=== PATIENT | male | born 1955 | race Caucasian/White ===

== ENCOUNTER 2016-11-19 23:39 | Emergency (ER) | payer OTHER ==
[~2016-11-19 23:39] MED LIST: ALDACTONE100 MG PO; ENULOSE10 GM/15 M PO; LACTULOSE10 GM/15 M PO; LACTULOSE20 GM/30 M PO; LASIX DPS40 MG PO; TYLENOL DPS325 MG PO; VITAMIN D31000 UNIT PO
--- NOTE | 2016-11-21 07:39 | ER ---
ADMIT: 11/19/2016 RM/LOC: ER [facility] MR#: [id number] 2620 [facility] [address] [place], [place] [address] [address] [address] [place], [place] [id number] Emergency Room Report SEX: M AGE: 61 : 1955 DATE: 11/19/2016 HISTORY OF PRESENT ILLNESS: The patient is a 61-year-old male with a past medical history of cirrhosis, hepatitis C, chronic kidney disease, who has PleurX on the right side for drainage of the pleural effusion, came to the ER because while he was in bed, he noticed a small bump, mass, just 4 cm above the insertion of the PleurX to the right flank. The patient states he does not recall when the mass started, but he never noticed it. The patient denies any trauma, denies any pain or discomfort. The patient yesterday morning used PleurX and took off some pleural effusion fluid successfully. PHYSICAL EXAMINATION: VITAL SIGNS: In the ER, the patient had stable vitals. HEAD AND NECK: Noncontributory. CHEST: Clear bilaterally. ABDOMEN: Soft and there is a 1 x 2 cm small swelling, 4 cm above the insertion of the PleurX to the right flank of abdomen. IMAGING: Chest x-ray did not show any pneumothorax or abnormalities, and there is a small pleural effusion on the right side. ASSESSMENT AND PLAN: At this stage, the patient is stable and can be discharged to home. Return precautions. The patient is going to call Dr. Antunez tomorrow for followups. The patient was advised to come back if there is any shortness of breath, increase in the mass, or any concern like if the PleurX does not work. The patient acknowledged. He understood it and agreed with the plan and was discharged to home. Kj Levy MD/ shaun SANCHEZ: 11/20/2016 08:53:10 JOB #: [id number] CC: Kj Levy MD, Attending Physician Wilfrido Antunez MD, Family Physician
[2016-12-17] MEDS ORDERED: DUONEB DPS3 ML IH (11:16)
[2017-04-14] MEDS ORDERED: CLARITIN DPS10 MG PO (10:50)
[2017-04-14] MEDS ORDERED: SOD BICARB TAB650 MG PO (10:50)
== END 2016-11-20 05:30 | disposition home or self-care (01) ==
LOC: ER 23:39
DX: R19.00 Intra-abdominal and pelvic swelling, mass and lump, unspecified site (principal); N18.9 Chronic kidney disease, unspecified; Z79.899 Other long term (current) drug therapy

== ENCOUNTER 2016-12-15 17:31 | Observation (INO) | payer OTHER ==
[~2016-12-15] VITALS: Ht 185.4 cm; Wt 144.0 kg
[2016-12-17] MEDS ORDERED: DUONEB DPS3 ML IH (11:16)
--- NOTE | 2016-12-21 08:30 | HP ---
ADMIT: 12/15/2016 RM/LOC: 510 [facility] MR#: [id number] 2620 [facility] [address] [place], [place] [address] [facility] R[facility] [address] [place] [address] History and Physical SEX: M AGE: 61 : 1955 DATE OF SERVICE: CHIEF COMPLAINT: Increased shortness of breath and weakness. HISTORY OF PRESENT ILLNESS: Morales is a very pleasant 61-year-old male with a complicated past medical history, including decompensated liver failure from hepatitis C, with recurrent right pleural effusions, requiring regular drainage from an indwelling PleurX catheter, who presented to the emergency department today with the above complaints. He has been followed since his last discharge by home health care on a regular basis, who have been helping him drain his recurrent fluid accumulations. Morales has also been following with the liver team and GI team down in [facility]. Over the last few weeks, Morales has been having increasing weakness, larger fluid accumulation, and increasing shortness of breath. The patient is actually supposed to go down on the of this month I believe for a formal evaluation for liver transplantation. Thus far, I do not believe he has been started on any medication for his hepatitis C. At any rate, home healthcare nursing discussed with our team, who recommended to discuss with [facility] and they recommended transfer down to the medical center for further evaluation and stabilization. Morales has been very sensitive to diuresis with his Lasix and spironolactone. Small changes have caused him to go into acute renal failure. Recently, he was having worsening renal failure and his Lasix was dropped from 40-20 mg along with his spironolactone. Creatinine baseline around 1.3 is jumped up to around 1.7 now. The patient states overall he is just feeling worse and worse. Upon evaluation in the emergency department, he was found to have stable labs, stable chest x-ray and not requiring any oxygen. Attempt was made to transfer to the medical center, however, being that their hospital is full, they recommended admission to our facility and secondary transfer down tomorrow or as soon as they have a bed available. Morales has no chest pain. No other significant complaints at this time, just feels fairly rundown, and does not feel that he would be able to get down to the appointment on the by himself. PAST MEDICAL HISTORY: Include: 1. Liver cirrhosis, secondary to hepatitis C, mild to moderately decompensated. Child-Arrieta score class B. 2. Hepatitis C, genotype 2b. 3. Chronic kidney disease. 4. Recurrent right pleural effusion, status post PleurX catheter placement with regular pleural effusion drainage. 5. Malnutrition. 6. Morbid obesity. 7. Generalized debility. 8. Hepatitis C, genotype 2b. 9. Pancytopenia, evaluated by our local vp training, thought to be secondary to hepatitis C, no history of bone marrow. 10.Mild depression. 11.Chronic respiratory failure, secondary to pleural effusion. 12.Disability secondary to the above. ADMIT: 12/15/2016 RM/LOC: 510 [facility] MR#: [id number] [address] [address] L[address] RICE [address] [place] [address] History and Physical SEX: M AGE: 61 : 1955 Most recent hospitalization, patient had a prolonged hospital stay from 03/29/2016 to 04/15/2016 with acute respiratory failure secondary to recurrent accumulation of right pleural effusion, healthcare-acquired pneumonia, incarcerated umbilical hernia with repair during that hospitalization, placement of right-sided PleurX catheter placement, and had multiple consultations with Nephrology, Pulmonology, Infectious Disease, Surgery, and Supportive Care. He also had a prolonged stay in the intense rehab unit. Has been fairly stable since then, following with home health care and with [facility] Hepatology. HOME MEDICATIONS: Include: 1. Furosemide 20 mg daily. 2. Spironolactone 50 mg daily. 3. Lactulose 15-30 mL 2-3 times a day. 4. Tylenol p.r.n., do not exceed 2000 mg. 5. Vitamin D3 at 1000 units every day. 6. Low-salt diet. ALLERGIES: NO KNOWN DRUG ALLERGIES. SOCIAL HISTORY: Patient previously was living in [place], originally from [place] and has moved back since he became ill. 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 He would like to get his hepatitis C treated and his liver treated so he can get back to work. He is , but . His 's name is Mary. His brother, Ryan, is his [id number] if he is unable to make medical decisions. His phone #. No alcohol, drug, or tobacco use. The patient has a sedentary lifestyle. FAMILY HISTORY: Mother and father . Mother from old age at about 93. Father had a myocardial infarction at 73, contracted infection, which also might have caused his demise thereafter. He has a brother with diabetes. He also had a stroke and a heavy drinker, smoker. REVIEW OF SYSTEMS: A 10-point review of systems obtained per HPI, otherwise negative. PHYSICAL EXAMINATION: VITAL SIGNS: Blood pressure 162/78, pulse 60, respirations 16, temperature 97.8, and 96% room air. GENERAL: Alert and oriented x3. Appears ill, but nontoxic, in good spirits as usual. HEART: Regular rate and rhythm. No murmurs, rubs, or gallops. LUNGS: Decreased right side greater than left with crackles in the bases. ABDOMEN: Soft. Nontender. Nondistended. Obese. PleurX catheter in place on the right chest wall, but does not appear to be infected. EXTREMITIES: With trace to 1+ edema. NEUROLOGIC: Cranial nerves II through XII grossly intact. No focal deficits. No significant asterixis. No findings of encephalopathy. ADMIT: 12/15/2016 RM/LOC: 510 [facility] MR#: [id number] 2620 [facility] [address] [place], [place] [address] L[facility] RICE [address] [place] [address] History and Physical SEX: M AGE: 61 : 1955 LABORATORY DATA: White count 4.0, hemoglobin 9.6 (which is stable), platelets 101 (stable). Sodium 149. Potassium 4.4. Creatinine 1.7. CO2 of 18. AST 109. Bilirubin 1. INR 1.14. Chest x-ray with decreased pleural effusion from previous x-ray. ASSESSMENT: A 61-year-old male with: 1. Decompensated liver failure with Child Arrieta score of 8, class B and a MELD score of 13, giving him a 6% mortality in next 3 months. 2. Worsening generalized fatigue and breathlessness secondary to decompensated liver failure. 3. Acute on chronic respiratory failure, mild without apparent hypercapnia or hypoxia. 4. Recurrent right pleural effusion, status post PleurX catheter drainage and regular draining with more fluid accumulation over the last week. 5. Chronic kidney disease, stable. 6. Malnutrition. 7. Pancytopenia, thought to be secondary to his hepatitis C. 8. Hepatitis C, genotype 2b. 9. Morbid obesity. 10.Mild depression. PLAN: At this point, the patient just seems subjectively to continue to worsen. Objectively, labs seem to be stable from previous labs at our clinic. I have been following him on a regular basis with regular labs. Home Healthcare nursing, however, and the patient do feel that he is declining. He certainly is having higher output from his PleurX catheter, likely secondary to the recent decrease in his Lasix. His kidneys have been very sensitive to further diuresis, and he quickly decompensates because of this. We have to watch very closely, and at this point, he does not feel that he is going to be able to make it down to his appointment on the by himself. We have ADMIT: 12/15/2016 RM/LOC: 510 [facility] MR#: [id number] 26[address] [facility] [address] [place], [place] [address] L[facility] RICE [address] [place] [address] History and Physical SEX: M AGE: 61 : 1955 discussed with his gastrointestinal team and home health care nursing facility and they do agree that he will do [facility] at [facility] point. We will admit here, and [facility] has agreed to transfer the patient as soon as they have a bed available. While here, we will check a serum AFP, abdominal ultrasound for any further ascites, and continue home medications. I will also have Nephrology see him to see if we can push the diuretics a little bit more in the meantime, just in case the patient is here for another 24-48 hours. Greater than 35 minutes was spent on overall patient care. Greater than 50% of that was spent [id number] interaction with the patient. He is agreeable to our plan. Wilfrido Antunez MD/ shaun JOB #: [id number] CC: Wilfrido Antunez, Attending Physician Wilfrido Antunez, Family Physician
--- NOTE | 2017-01-01 08:19 | ER ---
ADMIT: 12/15/2016 RM/LOC: 510 [facility] MR#: [id number] 2620 [facility] [address] [place], [place] [address] L[address] RICE [address] [place] [address] Emergency Room Report SEX: M AGE: 61 : 1955 DATE: 12/15/2016 ADDENDUM: A 61-year-old white male with multiple comorbidities, these include cardiac disease, cirrhosis, kidney failure, hypertension, hepatorenal syndrome, recurrent pleural effusions with Pleur-evac coming in today just not feeling well. [facility]; however, [facility]. Vital signs are otherwise stable. CBC and chemistry are intact. Chest x-ray and EKG nothing acute. I spoke with Dr. Antunez. He will admit to observation while they wait for a room to open up. CONDITION ON DISCHARGE: Fair. Jw Porter MD/ shaun JOB #: [id number] CC: Wilfrido Antunez MD, Attending Physician Wilfrido Antunez MD, Family Physician
[2017-04-14] MEDS ORDERED: CLARITIN DPS10 MG PO (10:50)
[2017-04-14] MEDS ORDERED: SOD BICARB TAB650 MG PO (10:50)
== END 2016-12-16 14:26 | disposition short-term general hospital (02) ==
LOC: ER 17:31 → 5MS 19:30
PROVIDERS: ADMIT Family Medicine
DX: K72.90 Hepatic failure, unspecified without coma (principal); J96.20 Acute and chronic respiratory failure, unspecified whether with hypoxia or hypercapnia; J90 Pleural effusion, not elsewhere classified; E46 Unspecified protein-calorie malnutrition; D61.818 Other pancytopenia; E66.01 Morbid (severe) obesity due to excess calories; F32.9 Major depressive disorder, single episode, unspecified; B19.20 Unspecified viral hepatitis C without hepatic coma; N18.9 Chronic kidney disease, unspecified; Z79.899 Other long term (current) drug therapy

== ENCOUNTER → 2016-12-31 | Outpatient (CLI) | payer OTHER ==
[~2016-12-31] MED LIST changes: +CLARITIN DPS10 MG PO; +DUONEB DPS3 ML IH; +SOD BICARB TAB650 MG PO
== END | disposition home or self-care (01) ==
LOC: RAD.S 11:57 → EDSTATUS 13:00
DX: Z46.82 Encounter for fitting and adjustment of non-vascular catheter (principal)

== ENCOUNTER 2017-04-10 14:07 | Inpatient (IN) | payer OTHER ==
[~2017-04-10] VITALS: Ht 185.4 cm; Wt 142.2 kg
[~2017-04-10 14:07] MED LIST changes: -CLARITIN DPS10 MG PO; -SOD BICARB TAB650 MG PO
--- NOTE | 2017-04-11 09:23 | HP ---
ADMIT: 04/10/2017 RM/LOC: 518 [facility] MR#: [id number] 2620 [facility] [address] [place], [place] [address] L[place] RICE [address] [place] [address] History and Physical SEX: M AGE: 61 : 1955 DATE OF SERVICE: CHIEF COMPLAINT: Small amount of bright red rectal bleeding today with increasing confusion and some shortness of breath. HISTORY OF PRESENT ILLNESS: Morales is a very nice, but unfortunate 61-year- old, male with decompensated liver failure for hepatitis C, with recurrent right pleural effusions, requiring regular drainage from indwelling PleurX catheter (placed on April 02, 2016). He had been followed by home health on a regular basis and they help him drain his recurrent pleural effusions. He has also been followed by the Liver team and Gastroenterology team at [facility]. He last saw them early this summer and "they don't tell me anything." He stated he had been getting along reasonably well until the last couple of days when he seemed to have more confusion and "it was felt like I was going wild." He is complaining of his "feet jumping." He also today noted a fairly small amount of rectal bleeding, although he thought "it was dripping some." This brought him to the emergency room, where evaluation showed no obvious rectal bleeding or hemorrhoids. His lab studies showed an ammonia up to 163 umol/L (baseline in the 60s) and his creatinine had bumped up to 1.9 mg/dL (baseline about 1.00 to 1.2). His total protein and albumin were 5.1 g/dL and 2.1 g/dL respectively. AST was only slightly elevated at 47 U/L (normal is 10 to 40) and his alkaline phosphatase and SGPT were within normal limits. His INR was 1.18 and his white count was 3600 with a hemoglobin of 8 (baseline about 9.6 to 10) and platelets of 88,000 (baseline about 100,000). He was given an extra dose of lactulose in the ER, although he reports "I am quite sure I did not miss any doses." He had also noted decreased output from his drain. He is therefore admitted for further evaluation and treatment. PAST MEDICAL HISTORY: Well documented on several of Dr. Wilfrido Antunez's previous history and physicals and dismissal summaries. His past medical history includes: 1. Liver cirrhosis secondary to hepatitis C, mildly decompensated now (Child- Arrieta score, class B). 2. Known hepatitis C, genotype B. 3. Chronic kidney disease. 4. Recurrent right pleural effusion, status post PleurX catheter placement with regular pleural effusion drainage. 5. Malnutrition. 6. Morbid obesity. 7. 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 8. Mild depression. 9. Chronic respiratory failure secondary to pleural effusions. 10.Disability secondary to all of the above. He had a prolonged hospital stay from 03/29/2016 to 04/15/2016 with acute respiratory failure with his right pleural effusion, healthcare pneumonia, incarcerated umbilical hernia with repair, and placement of his right-sided PleurX catheter with multiple consultations including Nephrology, Pulmonology, ADMIT: 04/10/2017 RM/LOC: 518 [facility] MR#: [id number] [address] [address] [place] R[facility] [address] [facility] [address] [place] [address] History and Physical SEX: M AGE: 61 : 1955 Infectious Disease, Surgery, and Supportive Care. He was then hospitalized again for a day or two on 12/15/2016, before being transferred to [facility] for re- evaluation by the Liver team and he was having more edema. From Dr. Mcbride's notes, apparently small changes in his Lasix and spironolactone doses have caused him to go into acute renal failure. After his hospitalization in March 2016, he had a prolonged stay in the inpatient rehab unit. MEDICATIONS: His current medications include: 1. Sodium bicarb 650 mg t.i.d. 2. Claritin 10 mg daily. 3. Spironolactone 100 mg, 2 daily. 4. Lasix 40 mg, 1 and 1/2 tablets daily. 5. Lactulose 10 g/15 mL, 30 mL q.i.d. p.r.n. (I do not know about that p.r.n. issue). ALLERGIES: NONE ARE REPORTED. 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 He is apparently (again according Dr. Mcbride's notes) , but . He has had no recent alcohol, drug, or tobacco use, and he has a very sedentary lifestyle. FAMILY HISTORY: Again from Dr. Mcbride's previous notes, revealed his mother from old age about 93. His father had a myocardial infarction at age 73 and then contracted some kind of infection which may have caused his . He has a brother with diabetes, who was also had a stroke and is a heavy drinker and smoker. REVIEW OF SYSTEMS: Otherwise, x10 is essentially negative. As noted above, he states he has been feeling well. PHYSICAL EXAMINATION: GENERAL: He is alert, has a little trouble coming up with the correct words, but is oriented x3. He is in no distress. VITAL SIGNS: His initial blood pressures have been in the 140 to 150 systolic range. He is afebrile. Pulse in the 80s. SKIN: Warm and dry. HEENT: Essentially negative. I do not detect any scleral icterus. NECK: Reasonably supple. I detect no bruits. LUNGS: Show diminished breath sounds on the right side. I do not detect any rales or wheezing. CARDIAC: Shows a regular rhythm. No obvious murmur, S3, S4, click, or rub. ABDOMEN: Soft, slightly distended, nontender. CHEST: He has a PleurX catheter in place in the right chest wall that the entry site appears clean. GENITAL AND RECTAL: Exam was not done (rectal exam done by the ER staff, showed no apparent blood). EXTREMITIES: Show a trace to 1+ pedal and pretibial edema. GENERAL NEUROLOGIC: He is normal within his ability to test. He has no ADMIT: 04/10/2017 RM/LOC: 518 [facility] MR#: [id number] 26[address] [facility] [address] [place], [place] [address] L[address] RICE [address] [facility] [address] [place] [address] History and Physical SEX: M AGE: 61 : 1955 asterixis and no focal deficits. Again, he just has a little trouble coming up with a right word and intermittently seems a little confused. IMPRESSION: 1. Bright red rectal bleeding, ?etiology. 2. Decompensated liver failure with a Child-Arrieta score of 8. Elevated ammonia levels on admission now. 3. Chronic respiratory failure, mild, without a current hypercapnia secondary to recurrent right pleural effusion. 4. Recurrent right pleural effusion with PleurX catheter placement and regular drainage (per home health). 5. Chronic kidney disease, slight bump in his creatinine today. 6. Malnutrition. 7. Pancytopenia, thought to be secondary to his hepatitis C. 8. Hepatitis C, genotype 2B. 9. Morbid obesity. 10.Mild depression. PLAN: He has been admitted to General Med-Surg. We will follow his hemoglobin closely and recheck basic labs again in the morning including his ammonia. We will give him lactulose 45 mL q.2 hours until he has a few soft stools. We will continue his other usual medications. Further treatment will depend on his response to our initial therapies. We will get some blood cultures and sepsis markers on him, although, apparently, he does not appear to be infected. Kristofer Mcmanus MD/ shaun SANCHEZ: 04/10/2017 16:46:03 JOB #: [id number] CC: Wilfrido Antunez, Attending Physician Wilfrido Antunez, Family Physician
--- NOTE | 2017-04-13 00:26 | ER ---
ADMIT: 04/10/2017 RM/LOC: 518 [facility] MR#: [id number] 2620 [facility] [address] [place], [place] [address] L[facility] RICE [address] [place] [address] Emergency Room Report SEX: M AGE: 61 : 1955 DATE: 04/10/2017 HISTORY OF PRESENT ILLNESS: Please refer to my T-sheet for complete H and P. Briefly, the patient is a 61-year-old who comes in with short of breath, confused, shaky, rectal blood. He has a known history of cirrhosis with hepatitis C. he is apparently on waiting list for a liver transplant he tells me. He said he is taking his lactulose, he is taking spironolactone, but he feels weak. He has a PleurX drain in his right chest for effusion that has been chronic; it has drained a little bit less. Home health wanted him evaluated. PHYSICAL EXAMINATION: GENERAL: Here, no acute distress. VITAL SIGNS: Blood pressure 126/70, pulse 84, respirations 12, temperature 97.4, sat 98%. HEENT: Grossly normal. LUNGS: Clear except there is slightly diminished in the right lower base. HEART: Regular. ABDOMEN: Obese, soft, really nontender. SKIN: He has 2+ edema in lower extremities. NEURO: He is alert, oriented at this time. Nonfocal. EMERGENCY DEPARTMENT COURSE: CBC was normal except for white count of 3.6, hemoglobin 8, platelets 88; his last hemoglobin was 8.6 in December of this year. Chemistries normal except for CO2 of 19, BUN 36, glucose 135, creatinine 1.9. His ammonia was 163. His INR was 1.18, his PT was 12.3, PTT 27.2. UA was normal except for 48 red cells. I did go and do a rectal exam, I saw a little irritation with some abrasions that could be bleeding a little bit, but no active bleeding at this time. I gave him 500 mL normal saline bolus, lactulose 30 mL p.o. I talked to Dr. Mcmanus; we are going to admit to the hospital. ADMIT: 04/10/2017 RM/LOC: 518 [facility] MR#: [id number] [address] [id number] [place], [place] [address] [facility] [address] [facility] [address] [place] [address] Emergency Room Report SEX: M AGE: 61 : 1955 ASSESSMENT: 1. Confusion with an elevated ammonia level. 2. Anemia. 3. Rectal bleeding, although mild with his last hemoglobin 8.6 two-three months ago. 4. Weakness. 5. Renal insufficiency. 6. Cirrhotic patient with liver cirrhosis. PLAN: Admit to the hospital at this time. Joshua Krause MD/ shaun JOB #: [id number] CC: Wilfrido Antunez MD, Attending Physician Wilfrido Antunez MD, Family Physician
--- NOTE | 2017-04-13 11:18 | CO ---
ADMIT: 04/10/2017 RM/LOC: 518 [facility] MR#: [id number] [address] [facility] [address] [place], [place] [address] LORRAINE RICE [address] [place] [address] Consultation SEX: M AGE: 61 : 1955 DATE OF CONSULTATION: 04/12/2017 ATTENDING PHYSICIAN: Wilfrido Antunez CONSULTING PHYSICIAN: Nettie Sullivan APRN REASON FOR CONSULTATION: For review of goals and expectations of healthcare as well as symptom management. TIME IN: 11:00. TIME OUT: 11:50. HISTORY OF PRESENT ILLNESS: This patient is a very nice 61-year-old male, who was admitted with complaints of increasing shortness of breath, acute confusion, and bright red rectal bleeding. He has a significant past medical history of decompensated liver failure due to hepatitis C, recurrent right pleural effusions, requiring regular drainage from an indwelling PleurX catheter that was placed on April 02, 2016. He is followed by home health on a regular basis, they help him drain his recurrent pleural effusions daily or every other day. He is followed by the Liver and Gastroenterology team, [facility]. He last saw them early this summer. He has recently been getting along reasonably well until the last couple of days and he seemed to have more confusion. He states that it felt like he was going wild and that his legs felt like they were jumping. He also did note a small amount of rectal bleeding. He then called his home health nurse and was told to go into the emergency room. In the ER, there was no obvious rectal bleeding or hemorrhoids noted on exam. He was admitted for further evaluation and workup of his acute confusion. When he was in the ER, his labs showed that his ammonia had increased to 163, his creatinine bumped up to 1.9. Typically, his baseline is about 1.0 to 1.2. He was given an extra dose of lactulose in the ER and admitted. The lactulose did cause some nausea and vomiting. Surgery was consulted for his rectal bleeding. They have seen the patient, and have ordered for the patient to follow up outpatient for a colonoscopy. He also has received 1 unit of packed red blood cells while in the hospital. Physical Therapy and Occupational Therapy have evaluated and treated the patient and he is to ambulate t.i.d. Symptomatically, currently, the patient is just complaining of fatigue. He states that he has been unable to get much rest while in the hospital. He does explain that he does get short of breath at times. He denies any nausea, vomiting, chest pain, or fevers at this time. The patient states he does have a living will, but it is not currently on file. I did request a copy from the patient. He is listed as a full code in the chart. His brother Mic Valverde is his next of kin and person to contact, his phone #[phone]. SOCIAL HISTORY: Currently, the patient is living at home. He does get ADMIT: 04/10/2017 RM/LOC: 518 [facility] MR#: [id number] [address] [address] DWAYNE LORRAINETANA AGUILERA [address] [place] [id number] Consultation SEX: M AGE: 61 : 1955 assistance from [facility] a couple of times a week. 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 He is , but . He does deny recent alcohol, drug, or tobacco use. FAMILY HISTORY: Significant for heart disease, diabetes, and stroke. ALLERGIES: NO KNOWN MEDICAL ALLERGIES. MEDICATIONS: Please refer to the chart for accurate dosages and routes. Current medications include: 1. Lactulose. 2. Lasix. 3. Claritin. 4. Zofran. 5. Spironolactone. 6. Sodium bicarb. 7. Requip. 8. Maalox. 9. Tylenol. 10.Colace. 11.Normal saline. FUNCTIONAL STATUS: Previously, the patient was living at home on his own. He did have reduced mobility, requiring a cane. He had a normal ADLs with some effort and there was a significant amount of disease. He was requiring occasional assistance. His intake was normal to decreased, and his LOC was full to confusion at times. His previous palliative performance scale was 80% to 70%. Currently, the patient is mostly sitting and lying in bed. He is requiring considerable assistance. His intake is normal to reduced. His LOC is full to confusion at times. His current palliative performance scale is about 60%. Falls: the patient does admit to having a fall two months ago. He denies any injury from that fall. Also of note, last year at this time, his weight was around 340 to 350; on admission, his weight was 303. REVIEW OF SYSTEMS: All review of systems were reviewed and negative except what was noted in the HPI. PHYSICAL EXAMINATION: GENERAL: The patient is alert and he is mildly confused. He is oriented to person and place. He does state that the year is 2019. During discussion, he states that the month is March and that we just recently celebrated . The patient is sitting up in bed and he is conversing without distress. VITAL SIGNS: Temperature 98.7, pulse is 70, respirations 14, blood pressure 135/63, O2 saturations 94% on room air. HEENT: Pupils are equal and reactive bilaterally. Oral mucosa is pink and moist with fair dentition. Head is normocephalic and atraumatic. ADMIT: 04/10/2017 RM/LOC: 518 [facility] MR#: [id number] [address] [facility] [address] [place] [phone] DWAYNE LORRAINETANA AGUILERA [address] [facility] [address] [place] [address] Consultation SEX: M AGE: 61 : 1955 NECK: Supple and thick without tracheal deviation. RESPIRATORY: The patient has nonlabored breathing. LUNGS: Sounds are diminished bilaterally. CARDIOVASCULAR: Regular rate and rhythm. No rubs, clicks, or murmurs are heard on exam. ABDOMEN: Rounded and soft. Bowel sounds are hypoactive. The patient states he had a bowel movement this morning; however, in the chart, it states that he has not had one since admission. MUSCULOSKELETAL: Muscle strength overall is weakened. He does have 1 to 2+ pedal and pretibial edema. RECTAL: The rectal exam was done in the ER, showed that he had no apparent blood or abnormalities. NEUROLOGIC: He has no focal deficits. PSYCH: He is calm and cooperative. He does state that he is fatigued and states multiple times that all he would like to do is rest. DIAGNOSTICS: Sodium 143, potassium 4.3, chloride 114, CO2 20, urea 32, glucose 75, creatinine 1.7, total bilirubin 2.5, AST is 48, albumin is 2.0, GFR is 42. WBC 4.0, hemoglobin 8.4, hematocrit 24.4, platelets 103. He did have a chest x-ray that was negative. IMPRESSION: 1. Physical debility. 2. Fatigue. 3. Malaise. 4. Palliative care. 5. Encephalopathy. 6. Zqaaj-kd-szdmdbl anemia. 7. Pancytopenia. 8. Chronic respiratory failure. 9. Recurrent pleural effusions. 10.Chronic kidney disease stage 2. 11.Chronic hep C. 12.Liver cirrhosis. 13.Moderate protein calorie malnutrition, albumin of 2.0. 14.Morbid obesity. 15.Full code with the transition to DNR/DNI. PLAN: I did meet at bedside with the patient and discussed his goals of care and his code status. The patient is mildly confused. As discussed in physical exam that he is oriented to person and place. He does state the year is 2019. I did discuss the patient goals, he explains to me that he would like to discharge home with [facility] as he already has in place. He states that he knows that he has poor health multiple medical conditions, but he states that he feels his health care needs are manageable at home and would like to stay at home as long as possible. I also did discuss code status with the patient. He states that he would like to try resuscitation with hesitation, following that statement, he state that at home, he is ADMIT: 04/10/2017 RM/LOC: 518 [facility] MR#: [id number] [address] [address] LORRAINE RICENY [address] [place] [address] Consultation SEX: M AGE: 61 : 1955 a DNR/DNI. I asked him why he would like to try resuscitation at this point. He states that he is aware that he may be put on machines, but he does not want to live on machines long-term. I had a long discussion with the patient reviewing the burden versus benefit of resuscitation and the patient does verbalize understanding Following this discussion, he states that he does not want to go through resuscitation and he would like to be listed as a do not resuscitate, do not intubate. I discussed with him, due to his confusion, that I need to call and verify his code status with his brother. The patient is in agreement with this and notes that his brother understands what his wishes are. I asked the patient about diqdw-xy-ntyopais paperwork and living will. The patient states he does have a living will and that his brother is his healthcare power of heating and cooling systems engineer. I did request a copy for the chart. I then did call Mic Abram, the patient's brother whose phone is #[phone] and I did discuss with him the conversation that I had with his brother and updated on his health status and the care he is receiving here in the hospital. Mic states that he is aware that the patient is here in the hospital and that he has been going through some treatments while here. I reviewed with his brother, his POA, the code status and he clearly states that the patient is to be DNR/DNI. Mic states that he believes Ale, based off of previous conversations, would not want to go through resuscitation. I did discuss with Mic my conversation with the patient and he was comfortable going forward with a do not resuscitate, do not intubate status. I did give much support during the conversation with the brother and he states his appreciation. I will continue to follow along in this patient's care and assist with needs as they arise. The patient was seen in collaboration with Dr. Hoang, who agrees with the above assessment, discussion, and plan. I would like to thank Dr. Wilfrido Antunez for the invitation to participate in this patient's care. Total consultation time was 50 minutes from 1100 to 1150 hours with [id number]-fg-[id number] time of 1105 to 1145 hours. Greater than 50% of this time was spent at bedside counseling and educating the patient and family, concerning goals of care, and option of care. Nettie Sullivan APRN/ shaun JOB #: [id number] CC: Wilfrido Antunez, Attending Physician Wilfrido Antunez, Family Physician
[2017-04-14] MEDS ORDERED: SOD BICARB TAB650 MG PO (10:50)
[2017-04-14] MEDS ORDERED: CLARITIN DPS10 MG PO (10:50)
--- NOTE | 2017-04-18 09:55 | CO ---
ADMIT: 04/10/2017 RM/LOC: 518 [facility] MR#: [id number] [address] [facility] [address] [place], [place] [address] GARRETT RICE [address] [place] [address] Consultation SEX: M AGE: 61 : 1955 DATE OF CONSULTATION: 04/11/2017 ATTENDING PHYSICIAN: Wilfrido Antunez CONSULTING PHYSICIAN: Ke Marcelo MD HISTORY: This is a 61-year-old male seen in Surgical consultation for Dr. Wilfrido Antunez for rectal bleeding. He is admitted with increasing confusion, shortness of breath, and a small amount of rectal bleeding. He describes that as drops in the toilet with no other associated symptoms on a couple of days last week. Since admission yesterday, he has had no bowel function. His hemoglobin was stable on recheck today. He has not had prior colonoscopy. He does have end-stage liver disease secondary to hepatitis C and has had [facility] He was receiving a unit of packed red blood cells in transfusion that day for hemoglobin of 7. His INR is slightly elevated related to his liver disease and he is also thrombocytopenic related to that with a current platelet count of 74,000. His ammonia studies are elevated secondary to his chronic liver failure and his lactulose was held last night. He has not had again any bleeding during admission and has remained hemodynamically stable. PAST MEDICAL HISTORY: Hepatic cirrhosis secondary to hepatitis C, decompensated in nature, class B Child Arrieta classification; chronic renal insufficiency; chronic right pleural effusion; morbid obesity; pancytopenia; mild depression. MEDICATIONS: At home: 1. Claritin. 2. Spironolactone. 3. Lactulose. 4. Lasix. 5. Sodium bicarb. ALLERGIES: NO KNOWN MEDICAL ALLERGIES. 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 He is , but . Denies recent alcohol, drug, or tobacco use. FAMILY HISTORY: Significant for heart disease, diabetes, and stroke. REVIEW OF SYSTEMS: He does describe recent shortness of breath and fatigue. The rectal bleeding of drops of bright red blood noted. Remainder of the 10- point review of systems is negative for other recent change. PHYSICAL EXAM: GENERAL: Garrett is alert and oriented and in no acute distress currently. He is afebrile. VITAL SIGNS: Stable. HEENT: Sclerae appear grossly anicteric. Cranial nerves are intact. NECK: Supple. ADMIT: 04/10/2017 RM/LOC: 518 [facility] MR#: [id number] [address] [address] GARRETT RICE [address] [place] [address] Consultation SEX: M AGE: 61 : 1955 LUNGS: Clear bilaterally. HEART: Regular rate and rhythm. ABDOMEN: Obese soft, nontender without palpable mass. I cannot appreciate organomegaly. EXTREMITIES: Peripheral 1+ edema. NEUROLOGICAL: No neurologic deficits. IMPRESSION: Rectal bleeding, last episode several days ago and described as drops with no bleeding during admission. PLAN: He is to receive transfusion today of packed red blood cells. If he does not have active bleeding, we would plan for outpatient colonoscopy scheduled upon discharge. If things were to more rapidly bleed, we would have a more urgent approach and bowel prep in the patient for colonoscopy. I discussed the options of scoping him and prepping here versus prepping at home and he would prefer the prep at home. He understands the risks of the procedure including bleeding, perforation, missed pathology and an incomplete exam and does wish to proceed. Ke Marcelo MD/ shaun JOB #: [id number] CC: Wilfrido Antunez, Attending Physician Wilfrido Antunez, Family Physician
== END 2017-04-13 16:25 | disposition home health service (06) | DRG 378 ==
LOC: ER 14:07 → 5MS 15:42
PROVIDERS: ADMIT Family Medicine
DX: K62.5 Hemorrhage of anus and rectum (principal); J90 Pleural effusion, not elsewhere classified; D61.818 Other pancytopenia; J96.10 Chronic respiratory failure, unspecified whether with hypoxia or hypercapnia; E44.0 Moderate protein-calorie malnutrition; N18.3 Chronic kidney disease, stage 3 (moderate); Z68.41 Body mass index [BMI] 40.0-44.9, adult; K72.90 Hepatic failure, unspecified without coma; K74.60 Unspecified cirrhosis of liver; B19.20 Unspecified viral hepatitis C without hepatic coma; D64.9 Anemia, unspecified; F32.9 Major depressive disorder, single episode, unspecified; E66.01 Morbid (severe) obesity due to excess calories; Z82.49 Family history of ischemic heart disease and other diseases of the circulatory system; Z76.82 Awaiting organ transplant status; Z66 Do not resuscitate